=== PATIENT | female | born 1940 | race African-American/Black ===

== ENCOUNTER → 2017-07-18 | Day surgery (SDC) | payer MEDICARE, BC ==
[2017-07-17 11:33] LABS: BASOPHILS % 0.4 % (0.0-1.0); EOSINOPHILS # (AUTO) 0.2 (0.0-0.4); HEMATOCRIT 39.7 % (34.2-44.1); HEMOGLOBIN 12.3 g/dL (12.0-16.0); LYMPHOCYTES # (AUTO) 2.6 (1.0-3.2); MEAN CORPUSCULAR HEMOGLOBIN 28.5 pg (28-32); MEAN CORPUSCULAR VOLUME 92.1 fL (81-99); MONOCYTES # (AUTO) 0.6 (0.2-0.8); MONOCYTES % 7.2 % (4.4-11.3); NEUTROPHILS # (AUTO) 4.6 (2.1-6.9); NEUTROPHILS % 57.2 % (38.7-80.0); PLATELET COUNT 110 x10e3/uL (140-360); RED BLOOD COUNT 4.31 x10e6/uL (3.6-5.1); RED CELL DISTRIBUTION WIDTH 16.8 % (11.7-14.4)
[2017-07-17 12:02] LABS: BLOOD UREA NITROGEN 14 mg/dL (7-26); BUN/CREATININE RATIO 17 (6-25); CALCIUM 9.4 mg/dL (8.4-10.2); CARBON DIOXIDE 27 mmol/L (22-29); CHLORIDE 107 mmol/L (98-107); CREATININE, SERUM 0.82 mg/dL (0.57-1.11); EST GLOMERULAR FILTRATION RATE > 60 ML/MIN (60-); GLUCOSE 101 mg/dL (74-118); SODIUM 143 mmol/L (136-145)
--- NOTE | 2017-07-17 12:19 | Diagnostic Imaging Report ---
PROCEDURE:CHEST 2 VIEWS TECHNIQUE:PA and lateral chest totaling 3 radiographs INDICATION:Preoperative evaluation for ankle surgery COMPARISON:None. FINDINGS: The lungs are clear and symmetrically inflated. No pleural effusions. Normal heart size, mediastinal contour, and pulmonary vasculature. A mildly tortuous thoracic aorta with mild arch calcification. Intact skeleton. CONCLUSION: No acute abnormality. Dictated by: Jimmie Grigsby M.D. on 07/17/2017 at 12:28 Electronically approved by: Jimmie Grigsby M.D. on 07/17/2017 at 12:28
[~2017-07-18] MED LIST: ACETAMINOPHEN 1000 MG/100 ML 100 ML IV ONE; AMLODIPINE BESY10 MG PO; ATORVASTATIN CA20 MG PO; BACITRACIN 50,000 UNIT VIAL ONE; BUPIVACAINE HCL 0.5% INJ 30 ML VIAL INJ ONE; CLINDAMYCIN 600MG/D5W 50ML 50 ML IV ONE; DESFLURANE 240 ML BTL INH ONE; DEXAMETHASONE SOD PHOS INJ 4 MG/ML VIAL ONE; FENTANYL CITRATE/PF 100MCG/2 ML INJ ONE; LISINOPRIL-HCT1 EAC2 PO; ONDANSETRON HCL INJ 2 MG/ML VIAL ONE; PROPOFOL IV EMULSION 10 MG/ML 20 ML VIAL ONE
--- OUTSIDE RECORDS SUMMARY | 2017-07-18 05:30 | XMS REPORT ---
Author Author [facility] Address Unknown Phone Unavailable Care Team Providers Care Milling Machine Tender Name Role Phone MARIAH MCNEIL Unavailable Unavailable Problems This patient has no known problems. Allergies, Adverse Reactions, Alerts This patient has no known allergies or adverse reactions. Medications This patient has no known medications. Results Test Description Test Time Test Comments Text Results Atomic Results Result Comments CHEST 2 VIEWS [place] [id number] [place] [address] Patient Name: VALERIE LONGORIA MR #: [id number] : 1940 Age/Sex: 76/F Req #: [id number] Adm Physician: Ordered by: MARIAH MCNEIL MD Report #: [id number] Location: OR Room/Bed: Procedure: [id number] DX/CHEST 2 VIEWS Exam Date: 07/17/17 Exam Time: 1140 REPORT STATUS: Signed PROCEDURE: CHEST 2 VIEWS TECHNIQUE: PA and lateral chest totaling 3 radiographs INDICATION: Preoperative evaluation for ankle surgery COMPARISON: None. FINDINGS: The lungs are clear and symmetrically inflated. No pleural effusions. Normal heart size , mediastinal contour, and pulmonary vasculature. A mildly tortuous thoracic aorta with mild arch calcification. Intact skeleton. CONCLUSION: No acute abnormality. Dictated by: Butch Grigsby M.D. on 10/2017 at 12:28 Electronically approved by: Butch Grigsby M.D. on 07/17/2017 at 12:28 Dictated By: BUTCH GRIGSBY MD [id number] Transcribed By: MARY on 07/17/17 1228 COPY TO: MARIAH MCNEIL MD
--- NOTE | 2017-07-18 09:19 | Operative Report ---
DATE OF PROCEDURE: July 18, 2017 PREOPERATIVE DIAGNOSIS: Complications regarding hardware, left ankle. POSTOPERATIVE DIAGNOSIS: Complications regarding hardware, left ankle. PROCEDURE: Hardware removal, left ankle. DISPLAY CARD WRITER: Monty Mari PA-C The patient was brought to the operating room for induction of anesthesia. Throughout this case, my PA's assistance was necessary for retraction of soft tissue and positioning of the extremity. This allows for efficient and technically successful execution of the operation and is considered medically necessary. INDICATIONS: The patient is a 76-year-old lady, who is status post an ORIF of her left ankle. We had significant issues with compliance postoperatively. She walked on her ankle and is morbidly obese. The fracture fixation partially failed. There are now loose screws at the inferior aspect of the plate. I have expressed my concern that the screws are going to cause an ulcer of the skin and lead to an infection. I have recommended hardware removal. I plan to leave the anterior to posterior lag screw. The risks and benefits were explained to the patient. She stated she understood and wished to proceed. DESCRIPTION OF PROCEDURE: The patient was brought to the operating room and placed under a brief general anesthetic. Her left lower extremity was prepped and draped in a sterile manner. Because of her obesity, we placed a tourniquet on the calf. The extremity was exsanguinated and the tourniquet was inflated to 250 mmHg. A preoperative time out was performed. A portion of the distal incision was opened up. All of the lateral plate and screws were removed. The wound was irrigated and closed. Subcuticular Vicryl and nylon stitches were used to close the skin. The 10 mL of 0.5% Marcaine were injected around the incision. A sterile bandage was applied. She was extubated and transported to the recovery room in stable condition. Job#: [id number]
== END | disposition home or self-care (01) ==
LOC: OR 05:27
PROVIDERS: ATTEND Specialist
DX: T84.197A Other mechanical complication of internal fixation device of bone of left lower leg, initial encounter (principal); S82.62XA Displaced fracture of lateral malleolus of left fibula, initial encounter for closed fracture; M19.90 Unspecified osteoarthritis, unspecified site; E66.01 Morbid (severe) obesity due to excess calories; I10 Essential (primary) hypertension; Y83.8 Other surgical procedures as the cause of abnormal reaction of the patient, or of later complication, without mention of misadventure at the time of the procedure; Z01.810 Encounter for preprocedural cardiovascular examination; Z01.812 Encounter for preprocedural laboratory examination; Z01.818 Encounter for other preprocedural examination; Z68.41 Body mass index [BMI] 40.0-44.9, adult; Z82.61 Family history of arthritis
CPT/HCPCS: 20680; 36415; 71046; 76000; 80048; 85025; 93005; J1100; J2405